=== PATIENT | female | born 1995 | race African-American/Black ===

== ENCOUNTER → 2024-04-16 12:36 | Outpatient (REF) | payer OTHER, SELFPAY ==
[2024-04-16 14:31] LABS: Hepatitis B Surface Antibody Positive
[2024-04-18 13:26] LABS: Varicella Zoster IgG (VZV) Positive
== END ==
LOC: OHS 12:36
PROVIDERS: ATTENDING PHYSICIAN Nurse Practitioner Family
DX: Z23 Encounter for immunization (principal)
CPT/HCPCS: 36415; 86706; 86787